=== PATIENT | female | born 1975 | race Caucasian/White ===

== ENCOUNTER 2024-04-17 09:07 | Day surgery (SDC) | payer OTHER ==
[~2024-04-17] VITALS: Ht 157.5 cm; Wt 113.4 kg
[2024-04-17] MEDS ORDERED: fentaNYL citrate 0.05 MG/ML VIAL ONE (10:39)
[2024-04-17] MEDS ORDERED: LIDOCAINE 2% 100 MG/5 ML UJET TP ONE (10:40)
[2024-04-17] MEDS: fentaNYL citrate 0.05 MG/ML VIAL IVP ONE (10:47)
[2024-04-17] MEDS: LIDOCAINE 2% 100 MG/5 ML UJET TP ONE (10:56)
== END 2024-04-17 11:55 | disposition home or self-care (01) ==
LOC: MDS 09:07 → MMU 09:23 → MDS 11:55
PROVIDERS: ATTEND Internal Medicine Gastroenterology
DX: Z12.11 Encounter for screening for malignant neoplasm of colon (principal); F17.210 Nicotine dependence, cigarettes, uncomplicated; Z79.899 Other long term (current) drug therapy; Z98.891 History of uterine scar from previous surgery; Z98.890 Other specified postprocedural states
CPT/HCPCS: 45378; J3010